=== PATIENT | female | born 1985 | race African-American/Black ===

== ENCOUNTER 2024-04-16 15:39 | Emergency (ER) | payer MEDICAID ==
[~2024-04-16] VITALS: Ht 172.7 cm; Wt 79.0 kg
[2024-04-16 15:53] VITALS: O2SAT 98
[2024-04-16] MEDS ORDERED: SULF1TAB48 MT (16:23)
[2024-04-16] MEDS ORDERED: CLIN-194 MT (16:23)
[2024-04-16 17:48] VITALS: BP 124/85; PULSE 81; RESP 16; TEMP 98.5
== END 2024-04-16 17:48 | disposition home or self-care (01) ==
LOC: ER 15:39
DX: S61.051A Open bite of right thumb without damage to nail, initial encounter (principal); Z88.0 Allergy status to penicillin; W50.3XXA Accidental bite by another person, initial encounter; Y93.89 Activity, other specified; Y92.89 Other specified places as the place of occurrence of the external cause; Y99.8 Other external cause status
CPT/HCPCS: 73130; 99283